=== PATIENT | male | born 1995 | race Caucasian/White ===

== ENCOUNTER 2017-10-25 23:58 | Emergency (ER) | payer MEDICAID ==
[~2017-10-25] VITALS: Ht 180.3 cm; Wt 113.6 kg
[2017-10-26] VITALS: BP 162/87
== END 2017-10-26 00:27 ==
LOC: ER 23:59
DX: F12.90 Cannabis use, unspecified, uncomplicated (principal); Z72.0 Tobacco use
CPT/HCPCS: 99283